=== PATIENT | female | born 1950 | race Two or more races ===

== ENCOUNTER 2025-01-01 22:38 | Emergency (ER) | payer MEDICARE, SELFPAY ==
[2025-01-01 22:40] VITALS: BMI 30.7
[2025-01-01 23:10] VITALS: BP 132/81; PULSE 100; RESP 16; TEMP 37.1; O2SAT 95
--- NOTE | 2025-01-01 23:14 | EDNOTE_ITS ---
ED Skin Abcess FB-RME/HPI General Chief complaint: Skin/Abscess/Foreign Body Stated complaint: RASH ON BACK Time Seen by Provider: 01/01/25 23:07 Arrival date/time: 01/01/25 22:38 RME / HPI RME / HPI narrative: 74-year-old female presents to the ED with complaint of rash to her back and side going around to the front of her chest onset yesterday. Patient reports the rash is mildly painful and hill. No new exposures. No fevers. Related Data Home Medications ?Medication ?Instructions ?Recorded ?Confirmed valsartan 40 mg tablet (Diovan) 40 mg PO QDAY #0 tabs 03/14/17 03/23/22 rivaroxaban 20 mg tablet (Xarelto) 20 mg PO QDAY 01/2703/23/22 albuterol sulfate 90 mcg/actuation 1 puff inhalation Q 4H PRN 01/23/20 03/23/22 aerosol inhaler (Ventolin HFA) Shortness Of Breath carvedilol 3.125 mg tablet 3.125 mg PO BID 01/23/20 Previous Rx's ?Medication ?Instructions ?Recorded furosemide 40 mg tablet 40 mg PO QDAY #30 tabs 09/15 diltiazem HCl 120 mg capsule,24 120 mg PO QDAY #30 cap s 01/24/20 hr,extended release guaifenesin 100 mg/5 mL oral liquid 100 mg (5 mL) PO Q ID PRN Cough 01/24/20 #100 mL magnesium oxide 400 mg (241.3 mg 400 mg PO QDAY #10 ta bs 01/24/20 magnesium) tablet potassium chloride 20 mEq 40 meq (2 x 20 mEq) PO BIDWM #15 01/24/20 tablet,extended release(part/cryst) tabs gabapentin 300 mg capsule 300 mg PO QDAY #30 caps 02/22 valacyclovir 1 gram tablet 1,000 mg PO TID 7 days #21 tabs 01/01/25 Allergies Allergy/AdvReac Type Severity Reaction Status Date / Time aspirin Allergy Mild rash Verified 03/23/22 03:20 Review of Systems Review of Systems Narrative Review of Systems: Review of systems negative except as outlined in the HPI. ED Exam Narrative Physical exam: Constitutional: no acute distress, age appropriate, non-toxic Eyes: conjunctivae w/o pallor, EOMI HENT: normocephalic, atraumatic. Respiratory Effort: no stridor, effort normal, no tachypnea Skin: warm, dry; vesicles on erythematous base following a dermatomal distribution on the right side of the back at approximately the level of T4. Neurology: alert, oriented X 4. Normal gait Psychology: cooperative, normal mood Course Quality Measures none Orders Category Date Time Status Acyclovir [Zovirax] Med 01/01/25 23:11 Discontinued 800 mg PO X1 ONE Gabapentin [Neurontin] Med 01/01/25 23:11 Discontinued 300 mg PO X1 ONE Vital Signs Vital signs: Vital Signs Temperature 98.8 F 01/01/25 23:10 Pulse Rate 100 01/01/25 23:10 Respiratory Rate 16 01/01/25 23:10 Blood Pressure 132/81 H 01/01/25 23:10 Pulse Oximetry (%) 95 01/01/25 23:10 Oxygen Delivery Method Room Air 01/01/25 23:10 Skin / Abscess / Foreign Body MDM Narrative MDM Narrative:: 74-year-old female presents to the ED with complaint of rash. Differential diagnoses include SJS, TENS, shingles, dermatitis, eczema History and exam not consistent with SJS or TENS. Most consistent with shingles. Patient will be started on Valtrex and gabapentin. Counseled to follow-up with primary care. Strict return to ED precautions given. Patient data External records reviewed:: [facility] previous records Clinical information provided by:: patient Social determinants that could affect healthcare access:: none Patient has the following chronic illnesses:: CHF, A-fib How is presenting disease/condition affected by chronic disease/condition?: no chronic disease Evaluation data The following diagnostics were reviewed and interpreted by me:: lab results and radiology exam(s) Lab and/or radiology exams considered but not ordered:: none Interpretation Summary: N/A Medications / Prescriptions Medications or Prescriptions considered but not ordered:: N/A Medication administrations:: Medication Administration History Discontinued Medications Acyclovir (Acyclovir 800 Mg Tablet) 800 mg PO X1 ONE Stop: 01/01/25 23:12 Gabapentin (Gabapentin 300 Mg Capsule) 300 mg PO X1 ONE Stop: 01/01/25 23:12 see above Consultations Consultation(s) initiated? (list below): No Diagnosis Skin/Abscess Differential Diagnosis: other (see mdm) Most likely diagnosis given after review of the tests above:: Shingles Admission Indicated Admission indicated?: not indicated Admission Request Was there a request for admission?: No Disposition Plan Disposition Plan: Discharge Discharge Attestation Discharge Attestation: The patient and all family members were given an opportunity to ask questions and understood the discharge instructions. Discharge instructions specifically effects, indications for sooner follow up or return to the emergency department, and the expected course of current diagnosis. Patient condition: Stable Discharge Plan Plan Patient Disposition: HOME (Self Care) Prescriptions/Referrals Prescriptions/Med Rec: New valacyclovir 1 gram tablet 1,000 mg PO TID 7 Days Qty: 21 0RF gabapentin 300 mg capsule 300 mg PO QDAY Qty: 30 0RF No Action furosemide 40 MG tablet 40 mg PO QDAY Qty: 30 0RF valsartan [Diovan] 40 MG tablet 40 mg PO QDAY Qty: 0 carvedilol 3.125 mg Tablet 3.125 mg PO BID albuterol sulfate [Ventolin HFA] 90 mcg/actuation Hfa Aerosol Inhaler 1 puff inhalation Q4H PRN (Reason: Shortness Of Breath) guaifenesin 100 mg/5 mL Liquid 100 mg PO QID PRN (Reason: Cough) Qty: 100 0RF potassium chloride 20 mEq Tablet,Er Particles/Crystals 40 meq PO BIDWM Qty: 15 0RF magnesium oxide 400 mg (241.3 mg magnesium) Tablet 400 mg PO QDAY Qty: 10 0RF diltiazem HCl 120 mg capsule,extended release 24 hr 120 mg PO QDAY Qty: 30 0RF Xarelto 20 mg Tablet 20 mg PO QDAY Problem List Clinical Impression: Shingles Patient/Caregiver Discharge Instructions Education Materials: ED Shingles (Herpes Zoster) Additional Instructions: Acuda a esequiel consulta de seguimiento con david m?dico de atenci?n primaria en 3 a 5 d?as para que le sarah un nuevo control. Nezperce los medicamentos seg?n lo prescrito. Regrese al servicio de urgencias si aparecen s?ntomas nuevos o empeoran. Follow-up with your primary care doctor in 3 to 5 days for recheck. Take medications as prescribed. Return to the ED for any new or worsening symptoms. Print Language: Uzbek Stand Alone Forms: Frieda Award Info., Patient Portal Info Letter
[2025-01-01] MEDS: GABAPENTIN 300 MG CAPSULE PO (23:32)
[2025-01-01] MEDS: ACYCLOVIR 800 MG TABLET PO (23:32)
== END 2025-01-01 23:45 | disposition home or self-care (01) ==
LOC: SERX 01-02 01:24
PROVIDERS: Emergency Provider Emergency Medicine; PCP Family Medicine
DX: B02.9 Zoster without complications (principal)
CPT/HCPCS: 99282; A9270

== ENCOUNTER → 2025-01-25 | Outpatient (CLI) | payer MEDICARE, SELFPAY ==
--- NOTE | 2025-01-25 14:00 | XR_ITS ---
Examination: Breast ultrasound, unilateral, right Date and time of exam: January 25, 2025 at 1357 hours INDICATIONS: Outside mammogram August 01, 2024 focal asymmetry right breast 15 mm retroareolar region Technique: Real-time mendiola scale ultrasonographic imaging performed right breast including all 4 quadrants as well as nipple retroareolar and axillary region. Findings: 6:00 dilated duct with internal echoes 12 x 6 x 11 mm IMPRESSION: BI-RADS Category 3: Probably benign findings One additional 6 month right breast sonogram follow-up is needed to document stability of finding in the 6:00 position right breast above
--- NOTE | 2025-01-25 14:30 | XR_ITS ---
Examination: Diagnostic digital mammography, unilateral, right Computer aided detection 3-D breast Tomosynthesis, unilateral Date and time of exam: January 25, 2025 1409 hours INDICATIONS: Mammogram August 01, 2025 15 mm focal asymmetry retroareolar region right breast Technique: Nonmagnified MLO, CC views of the right breast have been obtained, reconstructed from 3-D Tomosynthesis images. R2 computer aided detection program utilized for evaluation of suspicious masses and/or abnormal calcifications. 3-D Tomosynthesis images obtained. Findings: Scattered areas of fibroglandular density Benign calcifications Focal asymmetry remains in the retroareolar region right breast Impression: BI-RADS category 3: Probably benign findings One additional 6 month right mammogram follow-up is needed
== END | disposition home or self-care (01) ==
LOC: CDIM 13:06
PROVIDERS: PCP Physician Assistant; Referring Provider Physician Assistant; Visit Provider Physician Assistant
DX: R92.331 Mammographic heterogeneous density, right breast (principal); R92.8 Other abnormal and inconclusive findings on diagnostic imaging of breast
CPT/HCPCS: 76641; 77061; 77065; G0279

== ENCOUNTER → 2025-08-30 | Outpatient (CLI) | payer MEDICARE, SELFPAY ==
--- NOTE | 2025-08-30 13:30 | XR_ITS ---
Examination: Breast ultrasound, unilateral, right complete Date and time of exam: August 30, 2025, 1403 hours INDICATIONS: Right breast MRI exam January 25, 2025 6:00 dilated duct with internal echoes 12 x 6 x 11 mm Technique: Real-time mendiola scale ultrasonographic imaging performed right breast including all 4 quadrants as well as nipple retroareolar and axillary region. Findings: 9:00 cyst 3 x 3 mm, retroareolar dilated ducts No solid nodule noted IMPRESSION: BI-RADS Category 2: Benign findings
--- NOTE | 2025-08-30 14:00 | XR_ITS ---
Examination: Diagnostic digital mammography, unilateral, right Computer aided detection 3-D breast Tomosynthesis, unilateral Date and time of exam: August 30, 2025, 1413 hours INDICATIONS: Mammogram August 01, 2000 2515 mm focal asymmetry retroareolar region right breast Technique: Nonmagnified MLO, CC views of the right breast have been obtained, reconstructed from 3-D Tomosynthesis images. R2 computer aided detection program utilized for evaluation of suspicious masses and/or abnormal calcifications. 3-D Tomosynthesis images obtained. Findings: Scattered areas of fibroglandular density. No suspicious nodule depicted on the current study Impression: BI-RADS Category 2: Benign findings Return to yearly follow-up mammography
== END | disposition home or self-care (01) ==
LOC: CDIM 13:45
DX: R92.321 Mammographic fibroglandular density, right breast (principal)
CPT/HCPCS: 76641; 77061; 77065; G0279